=== PATIENT | female | born 1990 ===

== ENCOUNTER 2016-09-19 20:22 | Emergency (ER) | payer BC ==
--- NOTE | 2016-09-20 01:33 | ED ORDER SUMMARY ---
..... Patient: RACHEL GUZMAN OrderSheet [facility] VisitID: [id number] [address] [place] [address] 26y, F Registration Date/Time: 09/19/2016 ORDER SHEET Weight: 83.0 kg (stated) Allergies: No Known Drug Allergy GENERAL ORDERS: UA-Culture if indicated Urgent (20:49 09/19/2016 EHassan R.N. per protocol) (20:49 EHassan R.N.) CBC w Diff Urgent (21:30 09/19/2016 Hellen FINN) (Ack 21:50 CHagerty ER Supervisor Electron Tube Processing) (22:00 EHassan R.N.) CMP Urgent (21:30 09/19/2016 Hellen FINN) (Ack 21:50 CHagerty ER Supervisor Electron Tube Processing) (22:00 EHassan R.N.) Amylase Urgent (21:30 09/19/2016 Hellen FINN) (Ack 21:50 CHagerty ER Supervisor Electron Tube Processing) (22:00 EHassan R.N.) Lipase Urgent (21:30 09/19/2016 Hellen FINN) (Ack 21:50 CHagerty ER Supervisor Electron Tube Processing) (22:00 EHassan R.N.) Lactate, Serum Urgent (21:30 09/19/2016 Hellen FINN) (Ack 21:50 CHagerty ER Supervisor Electron Tube Processing) (22:00 EHassan R.N.) Blood Culture (No) (N/A) Urgent (21:36 09/19/2016 Hellen FINN) (Ack 21:50 CHagerty ER Supervisor Electron Tube Processing) (22:01 EHassan R.N.) GC/Chlamydia (Cervix) (cervix) Urgent (21:43 09/19/2016 Hellen FINN) (Ack 21:50 CHagerty ER Supervisor Electron Tube Processing) (23:28 EHassan R.N.) Wet Prep (Cervix) (cervix) Urgent (21:44 09/19/2016 Hellen FINN) (Ack 21:50 CHagerty ER Supervisor Electron Tube Processing) (23:28 EHassan R.N.) Pelvic Exam Setup (21:44 09/19/2016 Hellen FINN) (Ack 21:50 CHagerty ER Supervisor Electron Tube Processing) (22:07 EHassan R.NEfrain) US Pelvic Complete w Transvag Urgent (23:17 09/19/2016 Miguel A ER Supervisor Electron Tube Processing verbal order read back to Hellen FINN) (Ack 23:19 Miguel A ER Supervisor Electron Tube Processing) (23:28 Ciro R.N.) MEDICATION ORDERS: Misoprostol [place] (Tablet 100 mcg) 800 mcg (NOW, [place]- 800mcg) (01:23 09/20/2016 Hellen FINN) (1:45 Timi RubalcavaNEfrain) IV FLUIDS: IV Saline Lock (21:30 09/19/2016 Hellen FINN) (22:01 Ciro Womack) IV NS : initial bolus 500 mL (1000 mL/hr), then 125 mL/hr for 4h (NOW); Urgent (21:42 09/19/2016 Hellen FINN) (22:00 Ciro R.N.) Zofran IV 4 mg (NOW) (21:42 09/19/2016 Hellen FINN) (22:01 Ciro R.N.) Dilaudid IV 0.5 mg (HIGH ALERT MEDICATION, NOW) (21:43 09/19/2016 Hellen FINN) (22:01 Ciro R.N.) ORDER SHEET NOTES: [Electronically signed by Alivia Dwyer R.N. (01:50 09/20/2016)] [Electronically signed by Jayden Barber MD (03:32 09/20/2016)] [Electronically locked/signed by Alivia Dwyer R.N. (01:50 09/20/2016)]
--- NOTE | 2016-09-20 01:33 | ED ORDER SUMMARY ---
..... Patient: RACHEL GUZMAN OrderSheet [facility] VisitID: [id number] [address] [place] [address] 26y, F Registration Date/Time: 09/19/2016 ORDER SHEET Weight: 83.0 kg (stated) Allergies: No Known Drug Allergy GENERAL ORDERS: UA-Culture if indicated Urgent (20:49 09/19/2016 EHassan R.N. per protocol) (20:49 EHassan R.N.) CBC w Diff Urgent (21:30 09/19/2016 Hellen FINN) (Ack 21:50 CHagerty ER Audit Spec) (22:00 EHassan R.N.) CMP Urgent (21:30 09/19/2016 Hellen FINN) (Ack 21:50 CHagerty ER Audit Spec) (22:00 EHassan R.N.) Amylase Urgent (21:30 09/19/2016 Hellen FINN) (Ack 21:50 CHagerty ER Audit Spec) (22:00 EHassan R.N.) Lipase Urgent (21:30 09/19/2016 Hellen FINN) (Ack 21:50 CHagerty ER Audit Spec) (22:00 EHassan R.N.) Lactate, Serum Urgent (21:30 09/19/2016 Hellen FINN) (Ack 21:50 CHagerty ER Audit Spec) (22:00 EHassan R.N.) Blood Culture (No) (N/A) Urgent (21:36 09/19/2016 Hellen FINN) (Ack 21:50 CHagerty ER Audit Spec) (22:01 EHassan R.N.) GC/Chlamydia (Cervix) (cervix) Urgent (21:43 09/19/2016 Hellen FINN) (Ack 21:50 CHagerty ER Audit Spec) (23:28 EHassan R.N.) Wet Prep (Cervix) (cervix) Urgent (21:44 09/19/2016 Hellen FINN) (Ack 21:50 CHagerty ER Audit Spec) (23:28 EHassan R.N.) Pelvic Exam Setup (21:44 09/19/2016 Hellen FINN) (Ack 21:50 CHagerty ER Audit Spec) (22:07 EHassan R.NEfrain) US Pelvic Complete w Transvag Urgent (23:17 09/19/2016 Miguel A ER Audit Spec verbal order read back to Hellen FINN) (Ack 23:19 Miguel A ER Audit Spec) (23:28 Ciro R.N.) MEDICATION ORDERS: Misoprostol [place] (Tablet 100 mcg) 800 mcg (NOW, [place]- 800mcg) (01:23 09/20/2016 Hellen FINN) (1:45 Timi RubalcavaNEfrain) IV FLUIDS: IV Saline Lock (21:30 09/19/2016 Hellen FINN) (22:01 Ciro Womack) IV NS : initial bolus 500 mL (1000 mL/hr), then 125 mL/hr for 4h (NOW); Urgent (21:42 09/19/2016 Hellen FINN) (22:00 Ciro R.N.) Zofran IV 4 mg (NOW) (21:42 09/19/2016 Hellen FINN) (22:01 Ciro R.N.) Dilaudid IV 0.5 mg (HIGH ALERT MEDICATION, NOW) (21:43 09/19/2016 Hellen FINN) (22:01 Ciro R.N.) ORDER SHEET NOTES: [Electronically signed by Alivia Dwyer R.N. (01:50 09/20/2016)] [Electronically signed by Jayden Barber MD (03:32 09/20/2016)] [Electronically locked/signed by Alivia Dwyer R.N. (01:50 09/20/2016)]
--- NOTE | 2016-09-20 01:33 | ED CLINICAL REPORT ---
Clinical Report - Physicians/Mid Levels [facility] [address] [place] [address] 09/19/2016 20:23 Patient: RACHEL GUZMAN Time Seen: 21:29. Arrived- By private vehicle. Historian- patient. HISTORY OF PRESENT ILLNESS Chief Complaint: FEVER. This started today at about 6 PM and is still present. She has had measured fever of 101 F. The patient has had fatigue. Additional history - No known contact with a sick individual. patient underwent an elective 3 days ago. She has had some persistent mild vaginal bleeding However she became concerned because she developed some chills and sweats and checked her temperature and noted that she had a fever of 101. REVIEW OF SYSTEMS Last normal menstrual period- 24 Jun 2016. No chills, sweats, calf pain, chest pain or cough. No difficulty breathing, pedal edema, palpitations, black stools or bloody stools. No constipation, diarrhea, nausea or vomiting. The patient has had fever and abnormal bleeding. She has been passing clots. She has had mild pelvic pain (cramping). All systems otherwise negative, except as recorded above. PAST HISTORY Problems: Influenza. Additional Surgeries: Dilatation & Curettage. Medications: Ibuprofen Oral. Sertraline HCl Oral. Allergies: No Known Drug Allergy. SOCIAL HISTORY Former smoker, end date 07/2016. Occasional alcohol use. History of occasional drug use. FAMILY HISTORY Denies family medical history. ADDITIONAL NOTES The nursing notes have been reviewed. PHYSICAL EXAM Vital Signs: 09/19/2016 20:29 BP: 130/79. HR: 95. RR: 20. O2 saturation: 100%. Temp: 98.3 F. Pain level now: 0/10. Have been reviewed. Appearance: Alert. Eyes: Pupils equal, round and reactive to light. ENT: Pharynx normal. Neck: Normal inspection. Neck supple. CVS: Normal heart rate and rhythm. Heart sounds normal. Respiratory: No respiratory distress. Breath sounds normal. Abdomen: Soft and nontender. Bowel sounds normal. No organomegaly. No mass. Back: Normal inspection. No tenderness. : Slight vaginal bleeding present, consisting of dark blood, via the cervical os. Mild right adnexal tenderness; uterine tenderness; left adnexal tenderness. Enlarged uterus. Tenderness with movement of the cervix. Skin: Skin warm and dry. Normal skin color. No rash. Normal skin turgor. Extremities: Extremities exhibit normal ROM. No calf tenderness. Extremities nontender. LABS, X-RAYS, AND EKG Abdominal Sonogram: (8.1 X 7.5 cm intrauterine heterogeneous collection - nonvascular). Laboratory Tests: UA-Culture if indicated: (MIAN: 09/19/2016 20:48) ( [facility] 09/19/2016 21:01) Final results Test Result Flag Units (Reference) URINE COLOR YELLOW URINE APPEARANCE CLOUDY URINE GLUCOSE NEGATIVE (NEGATIVE) URINE BILIRUBIN NEGATIVE (NEGATIVE) URINE KETONE NEGATIVE (NEGATIVE) URINE SPECIFIC GRAVITY 1.020 (1.010-1.030) URINE PH 6.0 (5.0-8.0) URINE PROTEIN NEGATIVE (NEGATIVE) URINE UROBILINOGEN 0.2 EU/dL (0.2-1.0) URINE NITRITE NEGATIVE (NEGATIVE) URINE BLOOD 3+ (NEGATIVE) URINE LEUK ESTERASE NEGATIVE (NEGATIVE) URINE RBC 3-5 rbc/hpf (0-1) URINE WBC 0-1 wbc/hpf (0-1) URINE EPITHELIAL CELLS >15 EPI/hpf (0-5) URINE BACTERIA FEW (1+) (NONE SEEN) URINE COMMENT CULT NOT INDICATED 2+ AMORPHOUSURINE CULTURES ARE SET-UP BASED ON THE FOLLOWING CRITERIA:POSITIVE NITRITEPOSITIVE LEUKOCYTE ESTERASEGREATER THAN 10 WHITE BLOOD CELLSMODERATE (2+) OR GREATER BACTERIA CBC w Diff: (MIAN: 09/19/2016 22:00) ( [facility] 09/19/2016 22:18) Final results Test Result Flag Units (Reference) WHITE BLOOD COUNT 7.2 K/uL (4.5-11.5) RED BLOOD COUNT 3.90 L M/uL (4.00-5.20) HEMOGLOBIN 11.3 L gm/dL (12.0-16.0) HEMATOCRIT 33.7 L % (36.0-46.0) MEAN CELL VOLUME 86 fL (80-100) MEAN CORPUSCULAR HGB 29 pg (26-34) MEAN CORPUSCULAR HGB CONC 34 g/dL (31-37) RED CELL DISTRIBUTION WIDTH 14.5 % (11.6-14.8) PLATELET COUNT 183 K/uL (150-400) NEUTROPHIL % 56.6 % (50-75) LYMPH % 33.3 % (25-40) MONO % 7.1 % (3-14) EOSINOPHIL % 2.6 % (0-4) BASOPHIL % 0.4 % (0-2) Lactate, Serum: (MIAN: 09/19/2016 22:53) ( [facility] 09/19/2016 23:34) Final results Test Result Flag Units (Reference) LACTIC ACID 0.6 mmol/L (0.4-2.0) CMP: (MIAN: 09/19/2016 22:00) ( [facility] 09/19/2016 22:35) Final results Test Result Flag Units (Reference) GLUCOSE 110 mg/dL (70-110) BUN 9 mg/dL (7-18) CREATININE 0.6 mg/dL (0.6-1.3) Estimated GFR >60 mL/min Estimated GFR- >60 mL/min Note: Persistent reduction over 3 months in eGFR<60 mL/min/1.73 m2 defines CKD. Patients with eGFR values>=60 mL/min/1.73 m2 may also have CKD if evidence ofpersistent proteinuria. Additional information may be foundat www.kidney.org. SODIUM 141 mmol/L (136-145) POTASSIUM 3.6 mmol/L (3.5-5.1) CHLORIDE 107 mmol/L (98-107) CARBON DIOXIDE 25 mmol/L (21-32) CALCIUM 8.3 L mg/dL (8.5-10.1) TOTAL PROTEIN 6.7 g/dL (6.4-8.2) ALBUMIN 3.1 L g/dL (3.3-5.0) BILIRUBIN, TOTAL 0.2 mg/dL (0.0-1.0) ALKALINE PHOSPHATASE 58 U/L (46-116) AST (SGOT) 10 L U/L (15-37) ALT (SGPT) 19 U/L (12-78) LIPASE 156 U/L (73-393) AMYLASE 36 U/L (25-115) Wet Prep: (MIAN: 09/19/2016 23:16) ( MsgRcvd 09/19/2016 23:32) Final results SPECIMEN DESCRIPTION: CERVIX Test Result Flag Units (Reference) WET MOUNT CLUE CELLS:: NONE EPITHELIAL CELLS: FEW -- SOURCE?: CERVIX WHITE BLOOD CELLS: MANY TRICHOMONAS:: NONE -- YEAST:: NONE . PROGRESS AND PROCEDURES Course of Care: Patient is stable. Consult obtained from OB-COLLAR TACKER. Dr. Svetlana Cerda suggested the use of misoprostol and doxycycline. Case discussed. Phone consult only. Patient/family counseled. Disposition: Discharged. Condition: stable. CLINICAL IMPRESSION Fever Possible pelvic inflammatory disease. intrauterine clot status post dilation and curettage. INSTRUCTIONS No driving or operating machinery while taking medication. Sedative medication was given during your visit. Rest. Drink plenty of fluids. Warnings: Further evaluation is necessary. GENERAL WARNINGS: Return or contact your physician immediately if your condition worsens or changes unexpectedly, if not improving as expected, or if other problems arise. Prescription Medications: Hydrocodone/APAP 5mg/325mg: take 1 to 2 orally every 6 hours as needed for pain. Dispense fifteen (15). No refills. Doxycycline 100 mg: Take 1 capsule orally every 12 hours for 10 days. No refill. OTC Medications: Motrin (available over the counter): take according to label instructions. Follow-up: Follow up with your doctor [facility] today. Call for an appointment. Understanding of the discharge instructions verbalized by patient and parent. (Electronically signed by Jayden Barber MD 09/20/2016 3:32)
--- NOTE | 2016-09-20 01:33 | ED NURSING NOTES ---
Clinical Report - Nurses [facility] [address] [place] [address] 09/19/2016 20:23 Patient: RACHEL GUZMAN TRIAGE Triage time 2030 PM. Acuity: LEVEL 3. Chief Complaint: PELVIC PAIN and PAINFUL URINATION. Alert. No acute distress. SEPSIS SCREEN: Sepsis Screen. Negative (no infection suspected/documented). LETY COMA SCORE: Marceline Coma Scale: 15- eyes open spontaneously (4); best verbal response- oriented x 4 (5); best motor response- obeys commands (6). --20:37 Renetta Adams R.N. 20:29 09/19/16. BP: 130/79 (regular adult cuff) taken on the left arm, via an automated monitor, while sitting. HR: 95. RR: 20. O2 saturation: 100% on room air. Temp: 98.3 F. Pain level now: 0/10. --20:37 Renetta Adams R.N. Weight: 83 kg stated. Height/Length: 64 inches Per Patient. BMI: 31.4. --20:30 Renetta Adams R.N. Allergies No Known Drug Allergy. --20:31 Renetta Adams R.N. History Arrived by private vehicle. Historian: patient. Accompanied by family. Primary physician (Dr. Montero- quitman). ( Pt was 11 weeks and [facility], felt some cramping and pain last night, denies heavy bleeding (some clots) this morning felt dizzy and pelvic pain, with a temp of 101, took some Tylenol and ibuprofen. Pt called and spoke to nurse and was advice to come to ED for evaluation.). This started today. She has had fever and abdominal pain. No abnormal bleeding or flank pain. 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 (5 hrs). PAST MEDICAL HX: Immunizations: up-to-date. SOCIAL HX: Former smoker, end date 07/2016. Occasional alcohol use. No drug use. No infectious disease exposure. ABUSE ASSESSMENT: No report of abuse. SELF HARM ASSESSMENT: A self harm assessment was performed. The patient answered "no" to the question "Do you have thoughts of harming or killing yourself?" and "Have you recently had thoughts about harming or killing others?". FALL RISK ASSESSMENT: Fall risk assessment completed. No fall risk identified. NUTRITIONAL RISK ASSESSMENT: The nutritional risk assessment revealed no deficiencies. FUNCTIONAL ASSESSMENT: Functional assessment: no impairments noted. LEARNING NEEDS ASSESSMENT: The learning needs assessment revealed no barriers. SKIN INTEGRITY ASSESSMENT: Skin integrity risk assessment completed. No skin integrity risk identified. --20:37 Renetta Adams R.N. PROBLEMS: Influenza. --20:31 Renetta Adams R.N. ADDITIONAL SURGERIES: Dilatation & Curettage. --20:31 Renetta Adams R.N. Interventions ID band on patient. --20:37 Renetta Adams R.N. PHYSICAL ASSESSMENT Ambulatory to room. GENERAL / NEURO / PSYCH: Alert. Oriented X 4. Appears in no acute distress. Appears anxious. HEENT: Mucous membranes are pink. RESPIRATORY: Respirations not labored. Breath sounds within normal limits. CVS: Capillary refill less than 2 seconds. GI / : Abdomen soft. Abdominal tenderness in the upper abdomen, right upper quadrant, left upper quadrant, right lower quadrant, suprapubic area and left lower quadrant. Bowel sounds within normal limits. Scant vaginal bleeding present. SKIN: Skin is warm and dry. --20:40 Renetta Adams R.N. NURSING PROGRESS NOTES The initial plan of care for this patient has been created This plan of care was discussed with the patient. Patient gowned. Warming measures: blanket applied. Reassurance given. Two patient identifiers checked. Call light placed in reach. Side rails up x 1. Bed placed in lowest position. Brakes of bed on. --20:41 Renetta Adams R.N. 20:40 09/19/16. BP: 126/80 (regular adult cuff) taken on the left arm, via an automated monitor, while lying. HR: 87. RR: 15. O2 saturation: 98% on room air. Pain level now: 0/10. --20:41 Renetta Adams R.N. 21:56 09/19/2016 Dilaudid (HYDROmorphone HCl PF) IVP 0.5 mg given over 1 minute(s) via site #1. Allergies verified, confirmed 5 rights and sedative warning given to the patient. IV patency established. IV site checked: no pain, redness, or swelling. IV flushed thoroughly pre- and post-medication administration. IVP given by RN. --22: Renetta Adams R.N. 22:09/19/2016 Site #1 started via IV in the right antecubital space with an 20g angiocath; one attempt. Blood drawn. Labeled in the presence of the patient. Saline lock flushed. --22: Renetta Adams R.N. :09/19/2016 Started bag #1 500 mL IV Fluids IV NS (Saline); at 500 mL/hr over 30 minute(s) via site #1 via dial-a-flow. Allergies verified and confirmed 5 rights. IV patency established. IV site checked: no pain, redness, or swelling. IV flushed thoroughly pre- and post-medication administration. --22: Renetta Adams R.N. 22:09/19/2016 Zofran (Ondansetron HCl) IVP 4 mg given over 2 minute(s) via site #1. Allergies verified and confirmed 5 rights. IV patency established. IV site checked: no pain, redness, or swelling. IV flushed thoroughly pre- and post-medication administration. IVP given by RN. --22: Renetta Adams R.N. 22:09/19/2016 Zofran IVP Response: no adverse reaction symptoms have improved the patient feels better. --22:23 Renetta Adams R.N. 22:24 09/19/2016 Dilaudid IVP Response: no adverse reaction pain is gone now. Symptoms have improved the patient feels better. --22:24 Renetta Adams R.N. Reassurance given. Patient ID band checked for patient name, birthdate and medical record number: patient confirmed. Instructions provided to collect clean catch urine and patient verbalized understanding urine collected with return of yellow-colored clear urine; sample sent to lab for urinalysis. Specimen labeled in the presence of the patient. Reassessment after intervention and medication administered. She is calm and resting quietly and has had no adverse reaction. Overall patient status is improved- she states feels better. ( Pt does state that now pain is radiating to flank left side, denies hx of kidney stones). GI / : Denies abdominal pain or nausea. Two patient identifiers checked. Call light placed in reach. Bed placed in lowest position. Brakes of bed on. --22:26 Renetta Adams R.N. 22:26 09/19/16. BP: 117/72 taken on the left arm, while sitting. HR: 72. RR: 15. O2 saturation: 100%. Temp: 98 F. Pain level now: 0/10. --22:26 Renetta Adams R.N. Reassurance given. PELVIC EXAM: Pelvic exam performed by ED physician (Dr. Barber). Assisted by one nurse (Bryan RN). Preparation: pelvic tray. Procedure: speculum exam. Specimens collected and sent to lab: chlamydia and wet prep. Status post-procedure: she was stable. Total time of assist / procedure: 15 minutes. The patient is calm and resting quietly. Overall patient status is improved- she states feels better. GI / : The patient reports abdominal pain. Denies nausea. Vaginal bleeding. Two patient identifiers checked. --23:25 Renetta Admas R.N. Overall patient status is improved- she states feels better. --23:28 Renetta Adams R.N. 23:27 09/19/16. BP: 123/82 (regular adult cuff) taken on the left arm, via an automated monitor, while sitting. HR: 76. RR: 15. O2 saturation: 99% on room air. Temp: 98.1 F (oral). Pain level now: 0/10. --23:28 Renetta Adams R.N. Care transferred and report received. --23:36 Honey Steward R.N. Care transferred and report given (DAGOBERTO Méndez). --23:41 Renetta Adams R.N. 01:39 09/20/16. BP: 116/74. HR: 85. RR: 18. O2 saturation: 100%. Temp: 98.3 F. --01:40 Remigio, Chinyere 01:40 09/20/2016 MISOPROSTOL IN Supp/(IN) 800 mcg given. Allergies verified and confirmed 5 rights. --01:45 Alivia Dwyer R.N. 01:45 09/20/2016 IV Fluids IV NS Discontinued: discontinued. Total amount infused: 975 mL. --01:45 Alivia Dwyer R.N. 01:46 09/20/2016 Site #1 removed upon discharge. Catheter intact. --01:46 Alivia Dwyer R.N. DISPOSITION / DISCHARGE 01:49 09/20/16. Departure time: 01:Sep 20 2016. Condition at departure: improved and stable. The goals identified in the patient's plan of care were met. No learning barriers present. Reviewed medication(s) side effects, precautions, dosing and course information. Prescription(s) given to the patient. Reviewed referral to a house calls nurse for followup. Summary of care provided to patient via paper. The patient was discharged home and accompanied by family. She left the Emergency Department ambulatory and via private vehicle. Family member driving. --01:49 Alivia Dwyer R.N. 01:39 09/20/16. BP: 116/74. HR: 85. RR: 18. O2 saturation: 100%. Temp: 98.3 F. 23:27 09/19/16. BP: 123/82 (regular adult cuff) taken on the left arm, via an automated monitor, while sitting. HR: 76. RR: 15. O2 saturation: 99% on room air. Temp: 98.1 F (oral). Pain level now: 010. 22:26 09/19/16. BP: 117/72 taken on the left arm, while sitting. HR: 72. RR: 15. O2 saturation: 100%. Temp: 98 F. Pain level now: 0/10. 20:40 09/19/16. BP: 126/80 (regular adult cuff) taken on the left arm, via an automated monitor, while lying. HR: 87. RR: 15. O2 saturation: 98% on room air. Pain level now: 010. 20:29 09/19/16. BP: 130/79 (regular adult cuff) taken on the left arm, via an automated monitor, while sitting. HR: 95. RR: 20. O2 saturation: 100% on room air. Temp: 98.3 F. Pain level now: . --01:49 Alivia Dwyer R.N. Locked/Released at 09/20/2016 1:50 by Alivia Dwyer R.N.
--- NOTE | 2016-09-20 03:32 | ED MAR SUMMARY ---
..... Medication Administration Record [facility] [address] [place] [address] Patient: RACHEL GUZMAN Visit ID: [id number] 26y, F Weight: 83.0 kg Height/Length: 64 in BMI: 31.4 ALLERGIES: No Known Drug Allergy Given 21:56 09/19/2016 Renetta Adams R.N. Medication Administered: DILAUDID [IVP] (HYDROMORPHONE HCL PF), Dose: 0.5 mg IVP over 1 minute(s), Site: #1. Medication Ordered: Dilaudid IV 0.5 mg (HIGH ALERT MEDICATION, NOW). Start 22:00 09/19/2016 Renetta Adams R.N., Stop 01:45 09/20/2016 Alivia Dwyer R.N. Medication Administered: IV NS (SALINE), Dose: IV Fluids over 30 minute(s), Rate: 500 mL/hr, Dispensed: 500 mL bag, Site: #1 right AC. Medication Ordered: IV NS : initial bolus 500 mL (1000 mL/hr), then 125 mL/hr for 4h (NOW); Urgent. Given 22:01 09/19/2016 Renetta Adams R.N. Medication Administered: ZOFRAN [IVP] (ONDANSETRON HCL), Dose: 4 mg IVP over 2 minute(s), Site: #1 right AC. Medication Ordered: Zofran IV 4 mg (NOW). Given 01:40 09/20/2016 Alivia Dwyer R.N. Medication Administered: MISOPROSTOL [PA], Dose: 800 mcg Supp/(PA) PA. Medication Ordered: Misoprostol PA (Tablet 100 mcg) 800 mcg (NOW, PA- 800mcg).
--- NOTE | 2016-09-20 03:32 | ED DISCHARGE INSTRUCTIONS ---
Patient: RACHEL GUZMAN General Instructions [facility] VisitID: [id number] [address] [place] [address] 26y, F Registration Date/Time: 09/19/2016 Fever intrauterine clot status post dilation and curettage. INSTRUCTIONS No driving or operating machinery while taking medication. Sedative medication was given during your visit. Rest. Drink plenty of fluids. Warnings: Further evaluation is necessary. GENERAL WARNINGS: Return or contact your physician immediately if your condition worsens or changes unexpectedly, if not improving as expected, or if other problems arise. Prescription Medications: Hydrocodone/APAP 5mg/325mg: take 1 to 2 orally every 6 hours as needed for pain. Dispense fifteen (15). No refills. Doxycycline 100 mg: Take 1 capsule orally every 12 hours for 10 days. No refill. OTC Medications: Motrin (available over the counter): take according to label instructions. Follow-up: Follow up with your doctor [facility] today. Call for an appointment. Understanding of the discharge instructions verbalized by patient and parent. ADDITIONAL INFORMATION Febrile Illness, Uncertain Cause (Adult) You have a fever, but the cause is not certain. A fever is a natural reaction of the body to an illness such as infections due to a virus or bacteria. In most cases, the temperature itself is not harmful. It actually helps the body fight infections. A fever does not need to be treated unless you feel very uncomfortable. Sometimes a fever can be an early sign of a more serious infection. Therefore, you should watch for the signs listed below. Home Care: If signs and symptoms are severe, rest at home for the first 2-3 days. When you resume activity, don't let yourself get too tired. Stay away from cigarette smoke (yours and other peoples). You may use acetaminophen (Tylenol) or ibuprofen (Motrin, Advil) to control fever or pain, unless another medicine was prescribed. NOTE: If you have chronic liver or kidney disease or ever had a stomach ulcer or GI bleeding, talk with your doctor before using these medicines. (Aspirin should never be used in anyone under 18 years of age who is ill with a fever. It may cause severe liver damage.) Your appetite may be poor, so a light diet is fine. Avoid dehydration by drinking 6-8 glasses of fluid per day (water, sport drinks such as Gatorade, sodas without caffeine, juices, tea, soup). Extra fluid will help loosen secretions in the nose and lungs. Cngq-xro-iovhdbo products will not shorten the duration of the illness but may be helpful for the following symptoms: cough (Robitussin DM); sore throat (Chloraseptic lozenges or spray); nasal and sinus congestion (Actifed or Sudafed). NOTE: Do not use decongestants if you have high blood pressure. Follow Up with your doctor or as advised if you do not start to improve over the next week. Get Prompt Medical Attention if any of the following occur: Cough with lots of colored sputum (mucus) or blood in your sputum Chest pain, shortness of breath, wheezing or difficulty breathing Severe headache, face, neck, throat or ear pain Feeling drowsy or confused Abdominal pain, repeated vomiting or diarrhea Joint pain or a new rash Burning when urinating Fever of 100.4F (38C) oral or higher, not better with fever medication Feeling weak or dizzy Convulsion Hydrocodone Bitartrate, Acetaminophen Oral tablet What is this medicine? ACETAMINOPHEN; HYDROCODONE (a set a CEE otto fen; emil droe KOE done) is a pain reliever. It is used to treat mild to moderate pain. How should I use this medicine? Take this medicine by mouth. Swallow it with a full glass of water. Follow the directions on the prescription label. If the medicine upsets your stomach, take the medicine with food or milk. Do not take more than you are told to take. Talk to your statistical reporting analyst regarding the use of this medicine in children. This medicine is not approved for use in children. What side effects may I notice from receiving this medicine? Side effects that you should report to your doctor or health critical care transport nurse as soon as possible: allergic reactions like skin rash, itching or hives, swelling of the face, lips, or tongue breathing problems confusion feeling faint or lightheaded, falls stomach pain yellowing of the eyes or skin Side effects that usually do not require medical attention (report to your doctor or health critical care transport nurse if they continue or are bothersome): nausea, vomiting stomach upset What may interact with this medicine? alcohol antihistamines isoniazid medicines for depression, anxiety, or psychotic disturbances medicines for sleep muscle relaxants naltrexone narcotic medicines (opiates) for pain phenobarbital ritonavir tramadol What if I miss a dose? If you miss a dose, take it as soon as you can. If it is almost time for your next dose, take only that dose. Do not take double or extra doses. Where should I keep my medicine? Keep out of the reach of children. This medicine can be abused. Keep your medicine in a safe place to protect it from theft. Do not share this medicine with anyone. Selling or giving away this medicine is dangerous and against the law. Store at room temperature between 15 and 30 degrees C (59 and 86 degrees F). Protect from light. Keep container tightly closed. Throw away any unused medicine after the expiration date. Discard unused medicine and used packaging carefully. Pets and children can be harmed if they find used or lost packages. What should I tell my health care provider before I take this medicine? They need to know if you have any of these conditions: brain tumor Crohn's disease, inflammatory bowel disease, or ulcerative colitis drink more than 3 alcohol-containing drinks per day drug abuse or addiction head injury heart or circulation problems kidney disease or problems going to the bathroom liver disease lung disease, asthma, or breathing problems an unusual or allergic reaction to acetaminophen, hydrocodone, other opioid analgesics, other medicines, foods, dyes, or preservatives or trying to get breast-feeding What should I watch for while using this medicine? Tell your doctor or health critical care transport nurse if your pain does not go away, if it gets worse, or if you have new or a different type of pain. You may develop tolerance to the medicine. Tolerance means that you will need a higher dose of the medicine for pain relief. Tolerance is normal and is expected if you take the medicine for a long time. Do not suddenly stop taking your medicine because you may develop a severe reaction. Your body becomes used to the medicine. This does NOT mean you are addicted. Addiction is a behavior related to getting and using a drug for a non-medical reason. If you have pain, you have a medical reason to take pain medicine. Your doctor will tell you how much medicine to take. If your doctor wants you to stop the medicine, the dose will be slowly lowered over time to avoid any side effects. You may get drowsy or dizzy when you first start taking the medicine or change doses. Do not drive, use machinery, or do anything that may be dangerous until you know how the medicine affects you. Stand or sit up slowly. There are different types of narcotic medicines (opiates) for pain. If you take more than one type at the same time, you may have more side effects. Give your health care provider a list of all medicines you use. Your doctor will tell you how much medicine to take. Do not take more medicine than directed. Call emergency for help if you have problems breathing. The medicine will cause constipation. Try to have a bowel movement at least every 2 to 3 days. If you do not have a bowel movement for 3 days, call your doctor or health critical care transport nurse. Too much acetaminophen can be very dangerous. Do not take Tylenol (acetaminophen) or medicines that contain acetaminophen with this medicine. Many non-prescription medicines contain acetaminophen. Always read the labels carefully. Doxycycline Monohydrate Oral tablet What is this medicine? DOXYCYCLINE (dox israel FLORESClarice fitzpatrickkyung) is a tetracycline antibiotic. It kills certain bacteria or stops their growth. It is used to treat many kinds of infections, like dental, skin, respiratory, and urinary tract infections. It also treats acne, Lyme disease, malaria, and certain sexually transmitted infections. How should I use this medicine? Take this medicine by mouth with a full glass of water. Follow the directions on the prescription label. It is best to take this medicine without food, but if it upsets your stomach take it with food. Take your medicine at regular intervals. Do not take your medicine more often than directed. Take all of your medicine as directed even if you think you are better. Do not skip doses or stop your medicine early. Talk to your statistical reporting analyst regarding the use of this medicine in children. Special care may be needed. While this drug may be prescribed for children as young as 8 years old for selected conditions, precautions do apply. What side effects may I notice from receiving this medicine? Side effects that you should report to your doctor or health critical care transport nurse as soon as possible: allergic reactions like skin rash, itching or hives, swelling of the face, lips, or tongue difficulty breathing fever itching in the rectal or genital area pain on swallowing redness, blistering, peeling or loosening of the skin, including inside the mouth severe stomach pain or cramps unusual bleeding or bruising unusually weak or tired yellowing of the eyes or skin Side effects that usually do not require medical attention (report to your doctor or health critical care transport nurse if they continue or are bothersome): diarrhea loss of appetite nausea, vomiting What may interact with this medicine? antacids barbiturates control pills bismuth subsalicylate carbamazepine methoxyflurane other antibiotics phenytoin vitamins that contain iron warfarin What if I miss a dose? If you miss a dose, take it as soon as you can. If it is almost time for your next dose, take only that dose. Do not take double or extra doses. Where should I keep my medicine? Keep out of the reach of children. Store at room temperature, below 30 degrees C (86 degrees F). Protect from light. Keep container tightly closed. Throw away any unused medicine after the expiration date. Taking this medicine after the expiration date can make you seriously ill. What should I tell my health care provider before I take this medicine? They need to know if you have any of these conditions: liver disease long exposure to sunlight like working outdoors stomach problems like colitis an unusual or allergic reaction to doxycycline, tetracycline antibiotics, other medicines, foods, dyes, or preservatives or trying to get breast-feeding What should I watch for while using this medicine? Tell your doctor or health critical care transport nurse if your symptoms do not improve. Do not treat diarrhea with over the counter products. Contact your doctor if you have diarrhea that lasts more than 2 days or if it is severe and watery. Do not take this medicine just before going to bed. It may not dissolve properly when you lay down and can cause pain in your throat. Drink plenty of fluids while taking this medicine to also help reduce irritation in your throat. This medicine can make you more sensitive to the sun. Keep out of the sun. If you cannot avoid being in the sun, wear protective clothing and use sunscreen. Do not use sun lamps or tanning beds/booths. control pills may not work properly while you are taking this medicine. Talk to your doctor about using an extra method of control. If you are being treated for a sexually transmitted infection, avoid sexual contact until you have finished your treatment. Your sexual partner may also need treatment. Avoid antacids, aluminum, calcium, magnesium, and iron products for 4 hours before and 2 hours after taking a dose of this medicine. If you are using this medicine to prevent malaria, you should still protect yourself from contact with mosquitos. Stay in screened-in areas, use mosquito nets, keep your body covered, and use an insect repellent. Ibuprofen Oral tablet What is this medicine? IBUPROFEN (eye BYOO proe fen) is a non-steroidal anti-inflammatory drug (NSAID). It is used for dental pain, fever, headaches or migraines, osteoarthritis, rheumatoid arthritis, or painful monthly periods. It can also relieve minor aches and pains caused by a cold, flu, or sore throat. How should I use this medicine? Take this medicine by mouth with a glass of water. Follow the directions on the prescription label. Take this medicine with food if your stomach gets upset. Try to not lie down for at least 10 minutes after you take the medicine. Take your medicine at regular intervals. Do not take your medicine more often than directed. A special MedGuide will be given to you by the pharmacist with each prescription and refill. Be sure to read this information carefully each time. Talk to your statistical reporting analyst regarding the use of this medicine in children. Special care may be needed. What side effects may I notice from receiving this medicine? Side effects that you should report to your doctor or health critical care transport nurse as soon as possible: allergic reactions like skin rash, itching or hives, swelling of the face, lips, or tongue black or bloody stools, blood in the urine or in vomit breathing problems changes in vision chest pain general ill feeling or flu-like symptoms nausea or vomiting redness, blistering, peeling or loosening of the skin, including inside the mouth slurred speech or weakness on one side of the body stomach pain unexplained weight gain or swelling unusually weak or tired yellowing of eyes or skin Side effects that usually do not require medical attention (report to your doctor or health critical care transport nurse if they continue or are bothersome): constipation or diarrhea dizziness gas or heartburn stomach upset What may interact with this medicine? Do not take this medicine with any of the following medications: cidofovir ketorolac methotrexate pemetrexed This medicine may also interact with the following medications: alcohol aspirin diuretics lithium other drugs for inflammation like prednisone warfarin What if I miss a dose? If you miss a dose, take it as soon as you can. If it is almost time for your next dose, take only that dose. Do not take double or extra doses. Where should I keep my medicine? Keep out of the reach of children. Store at room temperature between 15 and 30 degrees C (59 and 86 degrees F). Keep container tightly closed. Throw away any unused medicine after the expiration date. What should I tell my health care provider before I take this medicine? They need to know if you have any of these conditions: asthma cigarette smoker drink more than 3 alcohol containing drinks a day heart disease or circulation problems such as heart failure or leg edema (fluid retention) high blood pressure kidney disease liver disease stomach bleeding or ulcers an unusual or allergic reaction to ibuprofen, aspirin, other NSAIDS, other medicines, foods, dyes, or preservatives or trying to get breast-feeding What should I watch for while using this medicine? Tell your doctor or healthcare professional if your symptoms do not start to get better or if they get worse. This medicine does not prevent heart attack or stroke. In fact, this medicine may increase the chance of a heart attack or stroke. The chance may increase with longer use of this medicine and in people who have heart disease. If you take aspirin to prevent heart attack or stroke, talk with your doctor or health critical care transport nurse. Do not take other medicines that contain aspirin, ibuprofen, or naproxen with this medicine. Side effects such as stomach upset, nausea, or ulcers may be more likely to occur. Many medicines available without a prescription should not be taken with this medicine. This medicine can cause ulcers and bleeding in the stomach and intestines at any time during treatment. Ulcers and bleeding can happen without warning symptoms and can cause . To reduce your risk, do not smoke cigarettes or drink alcohol while you are taking this medicine. You may get drowsy or dizzy. Do not drive, use machinery, or do anything that needs mental alertness until you know how this medicine affects you. Do not stand or sit up quickly, especially if you are an older patient. This reduces the risk of dizzy or fainting spells. This medicine can cause you to bleed more easily. Try to avoid damage to your teeth and gums when you brush or floss your teeth. You have been given the following additional information: Febrile Illness, Uncertain Cause (Adult) Hydrocodone Bitartrate, Acetaminophen Oral tablet Doxycycline Monohydrate Oral tablet Ibuprofen Oral tablet No driving or operating machinery while taking medication. Sedative medication was given during your visit. Rest. (Electronically signed by Jayden Barber MD 09/20/2016 3:32)
--- NOTE | 2016-09-20 03:32 | ED MED RECONCILIATION SUMMARY ---
Patient: RACHEL GUZMAN Medication Reconciliation Report [facility] VisitID: [id number] [address] [place] [address] 26y, F Registration Date/Time: 09/19/2016 Weight: 83.0 kg Height/Length: 64 in. BMI: 31.4 ALLERGIES: No Known Drug Allergy The patient's Home Medications are listed below: THE FOLLOWING MEDICATIONS NEED TO BE RECONCILED: Ibuprofen Oral Sertraline HCl Oral The source(s) of the original Home Medication information: Not obtained. The following Medications were given to the patient in the Emergency Department: IV NS IV Fluids bolus 0, then 500 mL/hr, administered: 09/19/2016 10:00:00 PM Zofran [IVP] IVP 4 mg, administered: 09/19/2016 10:01:00 PM Dilaudid [IVP] IVP 0.5 mg, administered: 09/19/2016 9:56:00 PM MISOPROSTOL [GA] GA 800 mcg, administered: 09/20/2016 1:40:00 AM The following Medications were prescribed to the patient: Motrin (available over the counter): take according to label instructions. -- Jayden Barber MD Hydrocodone/APAP 5mg/325mg: take 1 to 2 orally every 6 hours as needed for pain. Dispense fifteen (15). No refills. -- Jayden Barber MD Doxycycline 100 mg: Take 1 capsule orally every 12 hours for 10 days. No refill. -- Jayden Barber MD
--- NOTE | 2016-09-20 03:32 | ED MAR SUMMARY ---
..... Medication Administration Record [facility] [address] [place] [address] Patient: RACHEL GUZMAN Visit ID: [id number] 26y, F Weight: 83.0 kg Height/Length: 64 in BMI: 31.4 ALLERGIES: No Known Drug Allergy Given 21:56 09/19/2016 Renetta Adams R.N. Medication Administered: DILAUDID [IVP] (HYDROMORPHONE HCL PF), Dose: 0.5 mg IVP over 1 minute(s), Site: #1. Medication Ordered: Dilaudid IV 0.5 mg (HIGH ALERT MEDICATION, NOW). Start 22:00 09/19/2016 Renetta Adams R.N., Stop 01:45 09/20/2016 Alivia Dwyer R.N. Medication Administered: IV NS (SALINE), Dose: IV Fluids over 30 minute(s), Rate: 500 mL/hr, Dispensed: 500 mL bag, Site: #1 right AC. Medication Ordered: IV NS : initial bolus 500 mL (1000 mL/hr), then 125 mL/hr for 4h (NOW); Urgent. Given 22:01 09/19/2016 Renetta Adams R.N. Medication Administered: ZOFRAN [IVP] (ONDANSETRON HCL), Dose: 4 mg IVP over 2 minute(s), Site: #1 right AC. Medication Ordered: Zofran IV 4 mg (NOW). Given 01:40 09/20/2016 Alivia Dwyer R.N. Medication Administered: MISOPROSTOL [MT], Dose: 800 mcg Supp/(MT) MT. Medication Ordered: Misoprostol MT (Tablet 100 mcg) 800 mcg (NOW, MT- 800mcg).
--- NOTE | 2016-09-20 03:32 | ED MED RECONCILIATION SUMMARY ---
Patient: RACHEL GUZMAN Medication Reconciliation Report [facility] VisitID: [id number] [address] [place] [address] 26y, F Registration Date/Time: 09/19/2016 Weight: 83.0 kg Height/Length: 64 in. BMI: 31.4 ALLERGIES: No Known Drug Allergy The patient's Home Medications are listed below: THE FOLLOWING MEDICATIONS NEED TO BE RECONCILED: Ibuprofen Oral Sertraline HCl Oral The source(s) of the original Home Medication information: Not obtained. The following Medications were given to the patient in the Emergency Department: IV NS IV Fluids bolus 0, then 500 mL/hr, administered: 09/19/2016 10:00:00 PM Zofran [IVP] IVP 4 mg, administered: 09/19/2016 10:01:00 PM Dilaudid [IVP] IVP 0.5 mg, administered: 09/19/2016 9:56:00 PM MISOPROSTOL [IA] IA 800 mcg, administered: 09/20/2016 1:40:00 AM The following Medications were prescribed to the patient: Motrin (available over the counter): take according to label instructions. -- Jayden Barber MD Hydrocodone/APAP 5mg/325mg: take 1 to 2 orally every 6 hours as needed for pain. Dispense fifteen (15). No refills. -- Jayden Barber MD Doxycycline 100 mg: Take 1 capsule orally every 12 hours for 10 days. No refill. -- Jayden Barber MD
--- NOTE | 2016-09-20 06:12 | DIAGNOSTIC IMAGING REPORT ---
PROCEDURE: US COMPLETE PELVIC W/TRANSVAG INDICATION: PAIN TECHNIQUE: Transabdominal and endovaginal jason scale and color Doppler sonographic images of the female pelvis were obtained. COMPARISON: None. FINDINGS: TRANSABDOMINAL SCANS: The uterus measures 14.4 x 9.5 x 7.5 cm. Normal kidneys. TRANSVAGINAL SCANS: Myometrium is unremarkable. Closed cervix. Avascular heterogeneous thickened endometrium measures 7.8 x 7.5 x 6.3 cm. Right ovary measures 1.9 x 1.5 x 1.8 cm. There is vascular flow to the right ovary. Left ovary not visualized but there is no free fluid in the cul-de-sac. IMPRESSION: 1. Enlarged uterus with thickened avascular heterogeneous endometrium (7.8 x 7.5 x 6.3 cm) suggestive of hematocolpos. 2. Left ovary not visualized
== END 2016-09-20 01:50 | disposition home or self-care (01) ==
LOC: ED SRH 20:22
DX: O04.89 (Induced) termination of pregnancy with other complications (principal); R50.9 Fever, unspecified
CPT/HCPCS: 90004; 90065; 90074; 90100; 90195; 91227; 91228; 92031; 92235; 92530; 95059